=== PATIENT | male | born 1955 | race Caucasian/White ===

== ENCOUNTER → 2018-09-04 09:29 | Outpatient (CLI) | payer MEDICARE, OTHER, SELFPAY ==
[2018-09-04 09:43] LABS: Basophils # 0.1 K/mm3 (0-0.2); Basophils % 1.4 % (0.1-2.0); Eosinophils # 0.2 K/mm3 (0.0-0.4); Hematocrit 46.6 % (42.0-52.0); Hemoglobin 15.8 g/dL (14.1-18.0); Lymphocytes # 2.4 K/mm3 (0.7-4.5); Lymphocytes % 28.2 % (10-50); Mean Corpuscular HGB Conc 33.9 g/dL (31.8-35.4); Mean Corpuscular Hemoglobin 30.3 pg (27.0-31.2); Mean Corpuscular Volume 89.6 fl (80-94); Mean Platelet Volume 7.9 fl (7.4-10.4); Monocytes # 0.8 K/mm3 (0.1-1.0); Monocytes % 9.2 % (1.7-9.3); Neutrophils % 59.1 % (37.0-80.0); Platelet Count 236 K/mm3 (142-424); Red Cell Distribution Width 14.4 % (11.5-17.5); White Blood Count 8.5 K/mm3 (4.8-10.8)
[2018-09-04 10:34] LABS: Blood Urea Nitrogen 15 mg/dL (7-18); Calcium 8.9 mg/dL (8.5-10.1); Carbon Dioxide 29 mmol/L (21.0-32.0); Chloride 104 mmol/L (98-107); Creatinine,Serum 1.03 mg/dL (0.70-1.30); Estimated Glomerular Filt Rate 72 ml/min (>60); GFR (African American) 88 ML/MIN (>60); Glucose 97 mg/dL (74-106); Sodium 142 mmol/L (136-145)
== END ==
PROVIDERS: Visit Provider Surgery
DX: D17.9 Benign lipomatous neoplasm, unspecified (principal)
CPT/HCPCS: 36415; 80048; 85025; 93005

== ENCOUNTER → 2018-12-25 14:25 | Outpatient (CLI) | payer MEDICARE, OTHER, SELFPAY | PROVIDERS: PCP Family Medicine; Visit Provider Family Medicine | DX: R07.2 Precordial pain (principal) | CPT/HCPCS: 93017 ==

== ENCOUNTER → 2020-12-09 08:12 | Outpatient (POV) | payer MEDICARE, OTHER, SELFPAY ==
[2020-12-09 08:48] VITALS: BP 156/85; PULSE 74; RESP 18; O2SAT 98; BMI 28.5
--- NOTE | 2020-12-09 11:56 | HMH.PMCON ---
Assessment and Plan (1) Degenerative disc disease, lumbar Status: Chronic Category: Medical Code(s): M51.36 - Other intervertebral disc degeneration, lumbar region (2) Lumbar radiculopathy Status: Chronic Category: Medical Code(s): M54.16 - Radiculopathy, lumbar region (3) Mid back pain Status: Chronic Category: Medical Code(s): M54.9 - Dorsalgia, unspecified (4) Neck pain Status: Chronic Category: Medical Code(s): M54.2 - Cervicalgia (5) Cervical radiculopathy Status: Chronic Category: Medical Code(s): M54.12 - Radiculopathy, cervical region - Assessment and plan all Dx Assessment and Plan for all problems:: Patient has not had any recent imaging of his spine. He is having pain throughout the entire spine we will schedule him for an MRI of his cervical, thoracic, and lumbar spine. We will also order him Flexeril 5 mg 1 tablet p.o. 3 times daily to see if this helps with his pain when he is trying to sleep at night. We will see him back in the clinic after his MRIs to discuss this further plan of care. He has tried anti-inflammatories with no relief. He has been instructed to call the clinic if he has any concerns before we see him back after his MRIs. The patient and I specifically discussed risk factors for COVID19. These risks include, but are not limited to age greater than 60, heart or lung disease, diabetes, immunosuppression, and travel. We also discussed NSAIDs may worsen COVID19 infection or symptoms. Patient should not use NSAIDs to treat COVID19 signs or symptoms. Patient was also informed that any type of corticosteroid of any form (oral or injection) will decrease the patient's immune system response and may increase the likelihood of COVID19 infection [address] symptoms[address] Perez has reviewed this note and agrees with this plan of care. This note was dictated using voice recognition software and make contain errors or omissions. HPI - Data of Consult Patient: new to practice Consult date: 12/09/20 Requesting Physician: Jaylin Brown APRN Primary Care Provider: Jose Maria Ochoa MD - Consult Narrative Reason for consult: Neck, mid back, and low back pain History of present illness: Mr. Koenig is a 65 year old male who presents today for consultation for chronic back pain. Patient says he has neck, mid back, and low back pain. Patient rates his pain a 8 out of 10 today. He says that his pain at this point is primarily worse in the low back. He has not had any imaging of his spine in approximately 6 years. Patient's pain to the low back is worse on the right low back area radiating into the right buttock and right knee. He also has numbness in his leg. He says this has been ongoing for about a year. He reports that his leg locks up to the point that he is unable to move . He also says the pain is a punching-like sharp stabbing pain in the area. Sitting in a chair worsens his pain. He does have to stand often to get relief. Sleeping in the position also gives him relief. He does say that he wakes up throughout the night due to severity of the pain. He is also having pain in his mid back area that is worse with movement. He says the leaning forward seems to make the pain worse to that area. In his neck, the patient is having pain at the base of his neck radiating into his hands causing numbness and tingling. Patient does have a history of having 2 herniated disks and back surgery x2. He says that Dr. House performed a surgery as well as Dr. Theodora Rayo in [facility]. He did undergo injective therapy prior to his surgeries, however, has not had injective therapy since. He says he has the last surgery was performed approximately 6 years ago. Patient says with his last surgery with Dr. Theodora Rayo, I sac was cut around the cord causing complications . Patient reports that he had to lay flat for approximately 3 days following his surgery due to complications.
== END ==
PROVIDERS: PCP Family Medicine; Visit Provider Clinical Nurse Specialist Family Health
DX: M51.36 Other intervertebral disc degeneration, lumbar region (principal); M54.16 Radiculopathy, lumbar region; M54.2 Cervicalgia; M54.12 Radiculopathy, cervical region
CPT/HCPCS: 99202; G0463

== ENCOUNTER → 2020-12-13 14:19 | Outpatient (CLI) | payer MEDICARE, OTHER, SELFPAY ==
--- NOTE | 2020-12-13 14:24 | MR_ITS ---
PROCEDURE: MR THORACIC SPINE WO CON CLINICAL INDICATION: BACK PAIN Middle back pain. Hx 2 back surgeries x6-7yrs ago. Rt sided LBP Numbness in knee if standing for long periods. Tingling in rt leg. No prior. COMPARISON: No exams were available for comparison TECHNIQUE: Routine multiplanar multi echo sequences are performed without gadolinium enhancement. FINDINGS: There is normal alignment. No fracture or dislocation is evident. T2-T3: Minimal right paracentral disc protrusion. T4-T5: Small left paracentral disc protrusion. This is causing lateral recess narrowing and mild left-sided foraminal narrowing. Minimal right paracentral disc protrusion at T9-T10 There is a T1 and T2 hyperintensity involving the pedicle of T10 on the right consistent with lipoma or hemangioma. Additional T1 hyperintense lesions are present at T11 and T12 consistent with small lipomas or hemangiomas. IMPRESSION: 1. T2-T3: Minimal right paracentral disc protrusion. 2. T4-T5: Small left paracentral disc protrusion. This is causing lateral recess narrowing and mild left-sided foraminal narrowing. 3. Minimal right paracentral disc protrusion at T9-T10 4. 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
--- NOTE | 2020-12-13 14:24 | MR_ITS ---
PROCEDURE: MR LUMBAR SPINE WO CON CLINICAL INDICATION: BACK PAIN Hx 2 back surgeries x6-7yrs ago. Right-sided left back pain. Numbness in the on right leg if standing for long periods. Tingling in rt leg. COMPARISON: No exams were available for comparison TECHNIQUE: Standard multiplanar multiecho sequences are performed without contrast. 3-D MIP and myelographic images are also rendered and reviewed FINDINGS: There is slight reversal of the thoracolumbar lordosis. The spinal cord ends at L1. There is normal alignment. L1-L2: Mild degenerative disc disease with mild bulging disc with facet ligamentum hypertrophy with mild bilateral lateral recess and foraminal narrowing slightly greater on the right. L2-L3: Mild facet and ligamentum hypertrophy. L3-L4: Bulging disc with facet and ligamentum hypertrophy with moderate bilateral lateral recess and foraminal narrowing with borderline canal stenosis. L4-5: Degenerative disc disease with bulging disc. There is a medium sized right paracentral and foraminal disc herniation with superior extrusion causing severe right-sided lateral recess narrowing and foraminal narrowing with impingement upon the right L5 nerve root and the right L4 exiting nerve root. This is associated with prominent facet and ligamentum hypertrophy with bulging disc also with moderate left-sided foraminal narrowing. Endplate sclerosis is present at this level with canal stenosis. L5-S1: Unremarkable. Incidental note is made of T1-T2 hypertense lesions involving the vertebral bodies at T12, L1, L2, L3, and L4 consistent with multiple lipoma/hemangiomas. IMPRESSION: Abnormal MRI of the lumbar spine with multilevel lumbar spondylosis with bulging disc along with facet ligamentum hypertrophy and endplate hypertrophy with lateral recess and foraminal narrowing. Please see above for detailed description at each level. At L4-L5 there is degenerative disc disease with a medium-sized right paracentral and foraminal disc herniation with superior extrusion causing severe right-sided lateral recess narrowing and foraminal narrowing with impingement upon the right L5 nerve root and the right L4 exiting nerve root. This is associated with prominent facet and ligamentum hypertrophy with bulging disc also with moderate left-sided foraminal narrowing. Endplate sclerosis is present at this level with canal stenosis Dictated by: Lemuel Wahl MD 12/15/2020 13:04 Lemuel Wahl MD in [place] 12/15/2020 13:04
== END ==
PROVIDERS: PCP Family Medicine; Visit Provider Clinical Nurse Specialist Family Health
DX: M54.2 Cervicalgia (principal); M54.6 Pain in thoracic spine; M54.5 Low back pain
CPT/HCPCS: 72146; 72148; 76376

== ENCOUNTER → 2020-12-17 11:14 | Outpatient (CLI) | payer MEDICARE, OTHER, SELFPAY ==
--- NOTE | 2020-12-17 11:18 | MR_ITS ---
PROCEDURE: MR CERVICAL SPINE WO CON CLINICAL INDICATION: NECK PAIN PT C/O neck pain, arm numbness, and tingling. PT states rt arm is worse. PT denies injury or trauma. COMPARISON: No exams were available for comparison TECHNIQUE: Standard multiplanar multiecho sequences are performed without contrast. 3-D MIP and myelographic images are also rendered and reviewed FINDINGS: Craniocervical junction has an unremarkable appearance. C2-C3: Mild prominence of the posterior longitudinal ligament. C3-C4: Unremarkable. C4-C5: Minimal bulging disc slightly eccentric toward the right. C5-C6: Degenerative disc disease with bulging disc with mild bilateral foraminal narrowing. There is narrowing of the canal at 10 mm. C6-C7: Mild degenerative disc disease slightly eccentric toward the right. C7-T1: Minimal anterolisthesis of C7 3 mm. No extruded herniated disc. IMPRESSION: Cervical spondylosis with multilevel degenerative disc disease. Please see above for detailed description at each level No extruded herniated disc Dictated by: Lemuel Wahl MD 12/19/2020 10:09 Lemuel Wahl MD in [place] 12/19/2020 10:09
== END ==
PROVIDERS: PCP Family Medicine; Visit Provider Clinical Nurse Specialist Family Health
DX: M54.2 Cervicalgia (principal); M54.6 Pain in thoracic spine; M54.5 Low back pain
CPT/HCPCS: 72141; 76376

== ENCOUNTER → 2020-12-23 14:56 | Outpatient (POV) | payer MEDICARE, OTHER, SELFPAY ==
[2020-12-23 14:58] VITALS: BP 136/79; PULSE 75; RESP 18; O2SAT 98; BMI 27.8
--- NOTE | 2020-12-27 08:39 | P.CONS_ITS ---
[facility] Pain Management SOAP Note Subjective:: Patient is a pleasant 65-year-old white male who presents today for follow-up after MRI. Patient does have nerve impingement. Patient has had multiple surgeries in the past. Patient and I discussed options in regards to injective therapy versus surgical consultation. Patient would like to have a surgical consultation prior to any kind of epidural or interventional means of treatment. Patient rates his pain today a 5 out of 10. Patient has been on medication and failed conservative treatments. ROS General: no recent weight change, no fever, no sleep disturbances Respiratory: no cough, no shortness of air, no recurring pulmonary infections Cardiovascular/Peripheral Vascular: No chest pain, No palpitations, no edema, no shortness of breath. Gastrointestinal: no new onset incontinence, normal bowel movements reported Genitourinary: no new onset incontinence Musculoskeletal: [Back pain, leg pain] psychiatric: normal mood/ affect Neurological: [denies new onset weakness in extremities], [denies new onset balance issues] Objective:: Physical Exam General: Alert and oriented x3, no acute distress, pleasant and cooperative, [on room air] Lungs: Resps E/U, Symmetrical chest expansion, Eyes: PERRL Musculoskeletal: Flexion and extension of lumbar spine somewhat guarded secondary to pain, deep tendon reflexes normal, strength in upper and lower extremities [5/5], antalgic gait noted Neurological: speech clear, correctional sergeant equal, no gross sensory deficits Assessment:: Degenerative disc disease lumbar spine lumbar radiculopathy, postlaminectomy syndrome, back pain Plan:: We will send the patient for neurosurgical consultation. Patient has been seen by Dr. House in the past will contact his office. I did discuss with the patient that he will need to take his MRI disks with him. Patient understands. Dr. Perez has reviewed this note and agrees with this plan of care. This note was dictated using voice recognition software and may contain errors or omissions [facility] History I have reviewed the patient's past medical history: Yes Medical History: Reports:: Heart Murmur, Hyperlipidemia, Hypertension Denies:: Cancer, Diabetes Mellitus Type 1, Diabetes Mellitus Type 2, Internal Pacemaker, MRSA, Seizures *Have you ever received a pneumonia vaccine?: Yes *Have you received a flu vaccine this season?: Yes Other Medical History: Reports: Arthritis, Other (mini). Denies: Blood Transfusion Reaction Laterality Cases: Bilateral: Tonsillectomy Other Surgeries: Yes: No Previous Surgery, Other. No: Pacemaker Amputation: No Fractures: No - *Social History Smoking Status: Never smoker Alcohol Intake: never Alcohol Intake Frequency:: a few times a month Substance Use Type: denies use *Occupational Status:: other Housing: house Household Members: spouse *Travel in the last 8 weeks: None Family Hx:: Unable to obtain
== END ==
PROVIDERS: PCP Family Medicine; Visit Provider Clinical Nurse Specialist Family Health
DX: M51.16 Intervertebral disc disorders with radiculopathy, lumbar region (principal); M96.1 Postlaminectomy syndrome, not elsewhere classified
CPT/HCPCS: 99212; G0463

== ENCOUNTER → 2021-09-19 06:39 | Outpatient (CLI) | payer SELFPAY ==
--- NOTE | 2021-09-19 07:04 | CT_ITS ---
PROCEDURE: CT HEART W CALCIUM SCORE CLINICAL HISTORY: SCREENING COMPARISON: No exams were available for comparison TECHNIQUE: Axial images obtained with sagittal and coronal reformats. All CT scans at the facility use one or more dose reduction, viz: automated exposure control, ma/kV adjustment per patient size (including targeted exams where dose is matched to indication, i.e. head), or iterative reconstruction technique. FINDINGS: Coronary artery calcium score is 488. Extensive calcific plaque burden with very high cardiovascular disease risk. IMPRESSION: Extensive calcific plaque burden with very high cardiovascular disease risk Dictated by: Lemuel Wahl MD 09/19/2021 09:59 Lemuel Wahl MD in [place] 09/19/2021 09:59
== END ==
PROVIDERS: PCP Family Medicine; Visit Provider Family Medicine
DX: Z13.6 Encounter for screening for cardiovascular disorders (principal)
CPT/HCPCS: 75571

== ENCOUNTER → 2021-09-19 06:44 | Outpatient (CLI) | payer MEDICARE, OTHER, SELFPAY ==
--- NOTE | 2021-09-19 | CA_ITS ---
APPROVED REPORT EXAM: Comprehensive 2D, Doppler, and color-flow Echocardiogram Plumbing Service Technician: Marie Durand RT(R) Ht: 6 ft 0 in Wt: 207lbs BSA: 2.16 BP: 140/78 mmHg Indications: Abn EKG, CP, HTN, palpitations, fatigue, GRANDE, hyperlipidemia, family of HD, RBBB 2D Dimensions LVOT 2.18 cm (M/F) 1.5-2.5 LVEF (Rachel's) 60.00 % M: 52 - 72 LV Volume 101.20 mL M: 62 - 150 LV Volume Index 46.85 mL/m2 M: 34 - 74 LA Volume 34.00 mL LA Volume Index 15.74 mL/m2 (M/F) 16-34 M-Mode Dimensions RVDd 3.07 cm (0.9-2.6) LA Diam 3.52 cm (1.9-4.0) LVDd 4.93 cm (3.5-5.7) Ao Diam 2.87 cm (2.0-3.7) LVDs 3.32 cm (3.5-5.7) IVSd 0.96 cm (0.6-1.1) PWd 0.86 cm (0.6-1.1) EF (Teich) 60.80% FS 32.70% EDV (Teich) 114.40 mL ESV (Teich) 44.80 mL LV Diastology E Decel Time 163.00 (160-240 msec) E/A Ratio 0.9 MED E' 6.80 (< 7 cm/sec) E'/MED E' Ratio 9.21 (>14) LAT E' 11.20 (<10 cm/sec) E/LAT E' Ratio 5.59 (>14) Aortic Valve AI PHT 755.00 ms Mitral Valve MV E Max Sherif. 63.00 (40-130 cm/s) MV A Velocity 69.00 (40-130 cm/s) E/A Ratio 0.91 MV Decel. Time 163.00 (160-240 ms) MV PHT 48.00 ms Left Ventricle Left atrium is mildly enlarged, left ventricle is normal size, mild concentric left ventricular hypertrophy, visually estimated ejection fraction 55% with no regional wall motion abnormality, grade 1 diastolic dysfunction seen without tissue Doppler evidence of raise left atrial pressure. Right Ventricle Right atrium and right ventricle mildly enlarged with normal contractility. Aortic Valve Aortic valve is minimally thickened and fibrosed, there is no aortic stenosis, there is mild aortic insufficiency. Mitral Valve Mitral valve is grossly normal, there is trace mitral regurgitation. Tricuspid Valve Tricuspid valve grossly normal, there is trace tricuspid regurgitation, tricuspid regurgitation jet velocity is inadequate for calculation of the right ventricular systolic pressure. Pulmonic Valve Pulmonic valve is poorly visualized. Great Vessels Aortic root is normal size. Inferior vena cava normal size with normal inspiratory collapse. Pericardium No significant pericardial effusion noted. Conclusion 1. Mild biatrial enlargement, normal left ventricular size, mild concentric left ventricular hypertrophy, visually estimated ejection fraction 55% with no regional wall motion abnormality, grade 1 diastolic dysfunction seen without tissue Doppler evidence of raise left atrial pressure. 2. Mildly enlarged right ventricle with normal contractility. 3. Mild aortic, trace mitral and tricuspid regurgitation. 4. No significant pericardial effusion noted. 5. Inferior vena cava normal size with normal inspiratory collapse. Electronically signed by : Brody Sullivan MD 09/19/2021 19:34:50
== END ==
PROVIDERS: PCP Family Medicine; Visit Provider Family Medicine
DX: R07.9 Chest pain, unspecified (principal); I10 Essential (primary) hypertension
CPT/HCPCS: 93306

== ENCOUNTER 2023-05-11 10:24 | Day surgery (SDC) | payer MEDICARE, OTHER, SELFPAY ==
[2023-05-08 12:30] VITALS: BMI 28.2
[2023-05-11] VITALS (7 sets, daily range): BP systolic 97–159; BP diastolic 59–81; PULSE 61–76; RESP 15–17; TEMP 36.1–36.5; O2SAT 94–99
--- NOTE | 2023-05-11 10:54 | EXP.ANES.CKL ---
[facility] Disclaimer: The information contained in this section may have been updated after the patient was seen, as this information can be updated by other users. Medical History Heart murmur Hyperlipidemia Hypertension Surgical History History of back surgery Family History Other No significant family history Social History Smoking Status: Never smoker alcohol intake: never counseling provided: none substance use type: denies use current occupational status: other Travel in the last 8 weeks: None household members: spouse housing: house caffeine: No [facility] Anesthesia Checklist Patient Identification Patient Identification: Arm Band and Verbal (Name & ) Structural Data Admitted From: Home Planned Operative Procedure/s: Colonoscopy Consent for Planned Operative Procedure(s) Verified: Yes NPO Status Verified Time NPO: 00:00 Additional verifications Anesthesia Reactions: No Hx Blood Transfusions: No Blood Transfusion Reaction: No Airway Assessment Mallampati Score:: Class I C-Spine Mobility Assessed: Yes TMJ Mobility Assessed: Yes Dentition: Good Dentition Neurological Assessment Level of Consciousness: Awake Hx Seizures: No Numbness or tingling in extremities: No Anesthesia Plan Anesthesia Risk discussed: Yes Anesthesia Plan: Verified ASA Class: II Anesthesia Type: MAC
--- NOTE | 2023-05-11 11:18 | HMH.SCOPE ---
Procedure: Date: 05/11/23 Patient Date of :: 1955 Procedure Performed:: Total colonoscopy to terminal ileum with polypectomy using snare and biopsy Indications:: Patient is a 68-year-old male. He had undergone screening colonoscopy in approximately 2007 and had a couple of tubular adenomas removed. Repeat colonoscopy was recommended for 5 years. I had performed colonoscopy in December 2013 which revealed rare diverticuli. There were no polyps. Repeat colonoscopy was recommended for 10 years. Patient was scheduled for screening colonoscopy. Performing Provider:: Chay Silveira MD Referring Provider:: Luisito Ochoa MD Sedation:: MAC sedation Procedure:: Patient history was obtained and appropriate physical examination was performed. Patient's medications and allergies were reviewed. Informed consent was obtained after explaining the benefits, alternatives, and risks of the procedure including, but not limited to, bleeding, perforation, missed lesions, and adverse reaction to anesthesia medications. Patient was transported to endoscopy procedure room. Patient was connected to monitoring devices. Throughout the procedure the patient's blood pressure, pulse, and oxygen saturations were monitored continuously. Patient identification and planned procedure were verified by the staff. Patient was positioned in lateral decubitus position. Digital anorectal exam was performed. Variable stiffness Olympus colonoscope was inserted and advanced under direct visualization to the cecum. Adequacy of the colonic preparation was noted. The colonoscope was advanced a short distance into the terminal ileum. The colonoscope was then slowly withdrawn while carefully examining the color, texture, anatomy, and integrity of the mucosoa circumferentially. Within the rectum retroflexion was performed. Colonoscope was then withdrawn. . Patient had a mildly enlarged prostate with some more prominence of the right lobe without masses. Within the cecum there was a small adenomatous appearing polyp removed with cold snare. The splenic flexure there was a tiny polyp removed with snare with residual polypoid tissue removed with biopsy forceps. In the descending colon there were a couple polyps 1 removed with cold snare and 1 with biopsy forceps. The rectosigmoid region there was an adenomatous polyp removed with cold snare. A couple of additional very tiny diminutive polyps removed with biopsy forceps. Retroflexion within the rectum revealed internal anal papillae. Findings:: Mildly enlarged prostate Polyps as noted above Internal anal papilla Recommendations:: Repeat colonoscopy pending pathology. Complications:: None Estimated blood obtained (mL): 1 Colonoscopy Component Colonoscopy Component Was a colonoscopy performed during today's procedure?: Yes Recommended follow up colonoscopy of at least 10 years?: No If no, follow up colonoscopy recommended in ___ years?: Unclear Reason for not recommending >/= 10 yr follow-up interval?: Polyp pathology pending
== END 2023-05-11 12:48 | disposition home or self-care (01) ==
PROVIDERS: PCP Family Medicine; Visit Provider Surgery
PROC: 0DJD8ZZ Inspection of Lower Intestinal Tract, Via Natural or Artificial Opening Endoscopic (ICD-10-PCS; principal; 2023-05-11 11:30)
DX: Z12.11 Encounter for screening for malignant neoplasm of colon (principal); N40.0 Benign prostatic hyperplasia without lower urinary tract symptoms; D12.0 Benign neoplasm of cecum; D12.3 Benign neoplasm of transverse colon; D12.4 Benign neoplasm of descending colon
CPT/HCPCS: 45380; 45385; 88305; J2704

== ENCOUNTER 2024-08-31 16:56 | Emergency (ER) | payer MEDICARE, SELFPAY ==
[2024-08-31 17:40] VITALS: BP 139/88; PULSE 74; RESP 19; TEMP 37; O2SAT 99; BMI 24.0
--- NOTE | 2024-08-31 18:04 | ED_ITS ---
Discharge Plan Disposition Patient Disposition: Home, Self-Care Condition: Good Prescriptions Prescriptions: New benzonatate 100 mg capsule 100 mg PO TID PRN (Reason: cough) Qty: 30 0RF amoxicillin-pot clavulanate 875-125 mg Tablet 1 tab PO Q12H 7 Days Qty: 14 0RF No Action aspirin [Adult Low Dose Aspirin] 81 mg tablet,delayed release (DR/EC) 81 mg PO ONCE atorvastatin 40 mg tablet 40 mg PO HS meloxicam 7.5 mg tablet 7.5 mg PO DAILY tamsulosin 0.4 mg capsule 0.4 mg PO DAILY lisinopril 10 mg tablet 10 mg PO DAILY Referrals Follow up/Referrals: Jose Maria Ochoa MD [Primary Care Provider] - See instructions Activity Restrictions/Add. Instructions Additional Instructions/Restrictions: *Monitor Temp, Over the counter Motrin or Tylenol as directed/as needed Tylenol every 4 hours and Motrin every 6 hours (as long as your family doctor has told you that you can take it) for fever or pain. and straight to ER if unable to lower temp less than 101.0 after medication given *Warm salt water gargles may help to soothe the throat *Throat Lozenges? *Warm fluids like tea with honey may help to soothe the throat? *Sleep elevated *Humidifier/Vaporizer Take medication as prescribed Follow up IMMEDIATELY for new or worsening symptoms or no Noticeable improvement over the next 48-72 hours. 911 for difficulty breathing or swallowing Clinical Impressions Clinical Impression: Sinusitis Qualifiers: Sinusitis location: unspecified location Chronicity: unspecified Qualified Code(s): J32.9 - Chronic sinusitis, unspecified Instructions Patient Instructions: Sinusitis, DI for Sinusitis Print Language Print Language: Welsh Discharge ED Provider: Kerry Starks [facility] General Stated complaint: SOA,stopped up nose,cough Mode of Arrival: Ambulatory Source of Information: Patient Limitations: No Limitations Time Seen by Provider: 08/31/24 18:04 Description of Symptoms (Recalled from Triage Doc. by RN): PATIENT C/O NASAL CONGESTION, HEADACHE, COUGH, AND SINUS PAIN FOR OVER 1 WEEK HEENT Symptoms (Recalled from RN notes): Yes Resp Symptoms (Recalled from RN notes): Yes Skin Symptoms (Recalled from RN notes): No MS Symptoms (Recalled from RN notes): No Functional Status (Recalled from RN notes): WNL History of Present Illness Provider Complaint: Patient states that he has been fighting a sinus infection for about 3 weeks and thought it was getting better but it is not States that he has been having sinus pain and pressure, sinus headache, cough and feels like it is draining in the back of his throat so today when he was still not feeling any better he came in Related Data Home Medications ?Medication ?Instructions ?Recorded ?Confirmed aspirin 81 mg tablet,delayed 81 mg PO ONCE Blood thinner 05/10/18 08/31/24 release (Adult Low Dose Aspirin) atorvastatin 40 mg tablet 40 mg PO HS 08/31/24 08/31/24 lisinopril 10 mg tablet 10 mg PO DAILY 08/31/24 08/31/24 meloxicam 7.5 mg tablet 7.5 mg PO DAILY 08/31/24 08/31/24 tamsulosin 0.4 mg capsule 0.4 mg PO DAILY 08/31/24 08/31/24 Previous Rx's ?Medication ?Instructions ?Recorded amoxicillin 875 mg-potassium 1 tab PO Q12H 7 days #14 tabs 08/31/24 clavulanate 125 mg tablet benzonatate 100 mg capsule 100 mg PO TID PRN cough #30 caps 08/31/24 Allergies Allergy/AdvReac Type Severity Reaction Status Date / Time morphine Allergy Unknown DECREASED Verified 05/11/23 10:45 RESPIRATIONS Worker's Comp Is this a Worker's Comp case?: No [facility] Disclaimer: The information contained in this section may have been updated after the patient was seen, as this information can be updated by other users. Medical History Heart murmur Hyperlipidemia Hypertension Surgical History History of back surgery Family History Other No significant family history Social History Smoking Status: Never smoker alcohol intake: never counseling provided: none substance use type: denies use current occupational status: other household members: spouse housing: house caffeine: No ROS Obtained: Yes All systems reviewed & no additional complaints except as documented and Yes Systems reviewed as appropriate & no additional complaints except as documented Constitutional Constitutional: Reports system reviewed and no additional complaints, except as documented, Reports as per HPI and Reports headache(s) ENT Ears, Nose, Mouth, and Throat: Reports system reviewed and no additional complaints, except as documented, Reports as per HPI, Reports headache(s), Reports sinus pain and Reports sinus pressure Cardiovascular Cardiovascular: Reports system reviewed and no additional complaints, except as documented and Reports as per HPI Respiratory Respiratory: Reports system reviewed and no additional complaints, except as documented, Reports as per HPI and Reports cough Gastrointestinal Gastrointestingal: Reports system reviewed and no additional complaints, except as documented and as per HPI Neurologic Neurologic: Reports headache(s) Physical Exam General General appearance: alert and in no apparent distress ENT ENT exam: Present mucous membranes moist Expanded ENT Exam Nose exam: Present sinus tenderness Throat exam: Present other (PND noted) Chest Chest inspection: Present normal inspection and symmetric chest wall rise Respiratory Respiratory exam: Present normal lung sounds bilaterally; Absent respiratory distress or wheezes Cardiovascular Cardiovascular exam: Present regular rate, normal rhythm and normal heart sounds Neurological Exam Neurological exam: Present alert, oriented X3 and normal gait Medical Decision Making Medical Records Screening: Per USPSTF and CDC recommendations, given the prevalence of disease in our region, it is our hospital?s policy to screen for HIV and viral Hepatitis for all patients aged 18 and over and those with ongoing risk factors. Johan Inquiry Pt receiving controlled substance: No Johan was queried for this patient: No Vital Signs: 08/31/24 17:40 Temperature 98.6 F Temperature Source Oral Pulse Rate [Left Brachial] 74 Respiratory Rate 19 Blood Pressure [Left Arm] 139/88 Blood Pressure Mean [Left Arm] 105 Blood Pressure Source [Left Arm] Automatic Cuff Blood Pressure Position [Left Arm] Sitting 02 Sat by Pulse Oximetry 99 Oxygen Delivery Method Room Air Medical Decision Narrative: Medication discussed with pharmacy
[2024-08-31] MEDS: METHYLPREDNISOLONE SOD SUCC 125MG VIAL 125 MG IM (18:15)
[2024-08-31 18:20] VITALS: BP 139/88; PULSE 74; RESP 19; TEMP 37; O2SAT 99
== END 2024-08-31 18:26 | disposition home or self-care (01) ==
PROVIDERS: Emergency Provider Nurse Practitioner; PCP Family Medicine
DX: J32.9 Chronic sinusitis, unspecified (principal)
CPT/HCPCS: 96372; 99213; G0381; J2919